=== PATIENT | male | born 1950 | race Caucasian/White ===

== ENCOUNTER → 2023-07-15 14:20 | Outpatient (REF) | payer MEDICARE, OTHER, SELFPAY | LOC: RAD 14:20 | PROVIDERS: ATTENDING PHYSICIAN Nurse Practitioner Adult Health | DX: R05.3 Chronic cough (principal) | CPT/HCPCS: 71046 ==

== ENCOUNTER → 2023-08-14 08:46 | Outpatient (REF) | payer MEDICARE, OTHER, SELFPAY ==
[2023-08-14 09:56] LABS: % Basophils 0.2 % (0-2); % Eosinophils 2.1 % (0-6); % Immature Granulocytes 0.5 % (0-0.5); % Lymphocytes 20.9 % (20.5-51.1); % Monocytes 6.5 % (1.7-9.3); % Neutrophils 69.8 % (42.2-75.2); Absolute Eosinophils 0.1 10^3/uL (0-0.7); Absolute Lymphocytes 0.9 10^3/uL (1.2-3.4); Absolute Monocytes 0.3 10^3/uL (0.1-0.6); Hematocrit 36.4 % (39.0-52.0); Hemoglobin 12.4 g/dL (13.0-18.0); Mean Corp Hgb Conc. 34.1 g/dL (33.0-37.0); Mean Corpuscular Hgb 33.2 pg (27.0-31.0); Mean Corpuscular Volume 97.3 fL (80.0-94.0); Mean Platelet Volume 10.1 fL (7.4-10.4); Nucleated Red Blood Cells % 0 % (-); Platelet Count 150 10^3/uL (130-400); Red Blood Cell Count 3.74 10^6/uL (4.70-6.10); Red Cell Dist. Width 13.2 % (11.5-14.5); White Blood Cell Count 4.3 10^3/uL (4.8-10.8)
[2023-08-14 10:30] LABS: ALT (SGPT) 27 U/L (0-50); AST (SGOT) 21 U/L (17-59); Albumin 4.7 g/dl (3.5-5.0); Alkaline Phosphatase 47 U/L (38-126); Blood Urea Nitrogen 24 mg/dl (9-20); Calcium 9.4 mg/dl (8.4-10.2); Carbon Dioxide 26 mmol/L (22-30); Chloride 101 mmol/L (98-107); Glucose 212 mg/dl (70-99); HDL Cholesterol 38 mg/dl; Iron 112 ug/dl (49-181); LDL Cholesterol, Calculated 32 mg/dl; Potassium 4.4 mmol/L (3.5-5.1); Sodium 139 mmol/L (135-145); Total Cholesterol 100 mg/dl (50-199); Total Protein 7.6 g/dl (6.3-8.2); Triglyceride 153 mg/dl (10-149); Very Low Density Lipoprotein 30 mg/dl (0-30); eGFR > 60.00
[2023-08-14 10:40] LABS: Percent Saturation 29 % (20-50); Total Iron Binding Capacity 378 ug/dl (261-462)
[2023-08-14 11:13] LABS: Ferritin 30.6 ng/ml (17.9-464.0)
[2023-08-14 11:39] LABS: Glycohemoglobin (HgbA1c) 8.3 % (4.0-5.6)
== END ==
LOC: REG 08:46
PROVIDERS: ATTENDING PHYSICIAN Family Medicine
DX: E11.69 Type 2 diabetes mellitus with other specified complication (principal); D64.9 Anemia, unspecified; E78.2 Mixed hyperlipidemia
CPT/HCPCS: 36415; 80053; 80061; 82728; 83036; 83540; 83550; 85025

== ENCOUNTER → 2023-09-23 06:29 | Day surgery (SDC) | payer MEDICARE, OTHER, SELFPAY ==
[2023-09-23 11:58] LABS: Glucose - Point of Care 231 mg/dl (70-99)
== END ==
LOC: GI 06:29
PROVIDERS: ATTENDING PHYSICIAN Internal Medicine Gastroenterology
DX: Z12.11 Encounter for screening for malignant neoplasm of colon (principal); K64.0 First degree hemorrhoids; K57.30 Diverticulosis of large intestine without perforation or abscess without bleeding; K63.89 Other specified diseases of intestine; D12.3 Benign neoplasm of transverse colon; D12.0 Benign neoplasm of cecum; D12.2 Benign neoplasm of ascending colon; Z86.010 Personal history of colon polyps
CPT/HCPCS: 45385; 45380; 88305; 82962

== ENCOUNTER → 2023-09-30 08:57 | Outpatient (REF) | payer MEDICARE, OTHER, SELFPAY ==
[2023-09-30 12:25] LABS: % Basophils 0.8 % (0-2); % Eosinophils 2.5 % (0-6); % Immature Granulocytes 0.5 % (0-0.5); % Neutrophils 58.2 % (42.2-75.2); Absolute Eosinophils 0.1 10^3/uL (0-0.7); Absolute Lymphocytes 1.2 10^3/uL (1.2-3.4); Absolute Monocytes 0.4 10^3/uL (0.1-0.6); Absolute Neutrophils 2.3 10^3/uL (1.4-6.5); Hematocrit 39.4 % (39.0-52.0); Hemoglobin 13.2 g/dL (13.0-18.0); Mean Corp Hgb Conc. 33.5 g/dL (33.0-37.0); Mean Corpuscular Hgb 33.8 pg (27.0-31.0); Mean Platelet Volume 10.3 fL (7.4-10.4); Nucleated Red Blood Cells % 0 % (-); Platelet Count 167 10^3/uL (130-400); Red Cell Dist. Width 13.9 % (11.5-14.5)
[2023-09-30 12:34] LABS: INR 1.09; PT 13.9 Sec (11.4-14.6)
[2023-09-30 13:57] LABS: ALT (SGPT) 26 U/L (0-50); AST (SGOT) 24 U/L (17-59); Albumin 5.2 g/dl (3.5-5.0); Alkaline Phosphatase 56 U/L (38-126); Blood Urea Nitrogen 25 mg/dl (9-20); Carbon Dioxide 27 mmol/L (22-30); Chloride 98 mmol/L (98-107); GGTP 60 U/L (15-73); Glucose 176 mg/dl (70-99); Potassium 4.4 mmol/L (3.5-5.1); Sodium 141 mmol/L (135-145); Total Bilirubin 1.1 mg/dl (0.2-1.3); Total Protein 8.3 g/dl (6.3-8.2); eGFR > 60.00
[2023-09-30 14:15] LABS: AFP Male/Tumor Marker 1.67 ng/ml
== END ==
LOC: RAD 08:57
PROVIDERS: ATTENDING PHYSICIAN Internal Medicine Transplant Hepatology; FAMILY PHYSICIAN Family Medicine
DX: K74.69 Other cirrhosis of liver (principal)
CPT/HCPCS: 36415; 76700; 80053; 82105; 82977; 85025; 85610

== ENCOUNTER → 2023-10-14 09:14 | Outpatient (REF) | payer MEDICARE, OTHER, SELFPAY | LOC: HWRAD 09:14 | PROVIDERS: ATTENDING PHYSICIAN Registered Nurse Ambulatory Care; REFERRING PHYSICIAN Physician Assistant Surgical | DX: R51.9 Headache, unspecified (principal); J01.10 Acute frontal sinusitis, unspecified; M54.6 Pain in thoracic spine | CPT/HCPCS: 70470; 70486; 72070; Q9967 ==

== ENCOUNTER → 2023-11-27 11:39 | Outpatient (REF) | payer MEDICARE, OTHER, SELFPAY | LOC: HWRAD 11:39 | PROVIDERS: ATTENDING PHYSICIAN Internal Medicine Critical Care Medicine; FAMILY PHYSICIAN Family Medicine | DX: R05.3 Chronic cough (principal) | CPT/HCPCS: 71250 ==

== ENCOUNTER → 2023-12-17 08:57 | Outpatient (REF) | payer MEDICARE, OTHER, SELFPAY ==
[2023-12-17 11:33] LABS: % Basophils 0.6 % (0-2); % Eosinophils 2.8 % (0-6); % Immature Granulocytes 0.2 % (0-0.5); % Lymphocytes 27.1 % (20.5-51.1); % Monocytes 7.2 % (1.7-9.3); % Neutrophils 62.1 % (42.2-75.2); Absolute Eosinophils 0.1 10^3/uL (0-0.7); Absolute Lymphocytes 1.4 10^3/uL (1.2-3.4); Absolute Monocytes 0.4 10^3/uL (0.1-0.6); Absolute Neutrophils 3.1 10^3/uL (1.4-6.5); Hematocrit 38.5 % (39.0-52.0); Hemoglobin 13.1 g/dL (13.0-18.0); Mean Corpuscular Hgb 34.1 pg (27.0-31.0); Mean Corpuscular Volume 100.3 fL (80.0-94.0); Mean Platelet Volume 10.3 fL (7.4-10.4); Nucleated Red Blood Cells % 0 % (-); Platelet Count 155 10^3/uL (130-400); Red Blood Cell Count 3.84 10^6/uL (4.70-6.10); Red Cell Dist. Width 13.2 % (11.5-14.5)
[2023-12-17 12:11] LABS: ALT (SGPT) 23 U/L (0-50); AST (SGOT) 25 U/L (17-59); Albumin 4.9 g/dl (3.5-5.0); Alkaline Phosphatase 63 U/L (38-126); Blood Urea Nitrogen 26 mg/dl (9-20); Calcium 9.4 mg/dl (8.4-10.2); Carbon Dioxide 26 mmol/L (22-30); Chloride 98 mmol/L (98-107); Glucose 199 mg/dl (70-99); HDL Cholesterol 34 mg/dl; Iron 107 ug/dl (49-181); Potassium 4.2 mmol/L (3.5-5.1); Sodium 138 mmol/L (135-145); Total Bilirubin 1.1 mg/dl (0.2-1.3); Total Cholesterol 112 mg/dl (50-199); Total Protein 7.5 g/dl (6.3-8.2); eGFR > 60.00
[2023-12-17 12:20] LABS: Percent Saturation 28 % (20-50); Total Iron Binding Capacity 375 ug/dl (261-462); Triglyceride 417 mg/dl (10-149)
[2023-12-17 12:39] LABS: Ferritin 29.8 ng/ml (17.9-464.0)
[2023-12-17 12:43] LABS: LDL Cholesterol, Direct 36 mg/dl
[2023-12-17 12:58] LABS: Glycohemoglobin (HgbA1c) 7.6 % (4.0-5.6)
== END ==
LOC: REG 08:57
PROVIDERS: ATTENDING PHYSICIAN Family Medicine
DX: E11.69 Type 2 diabetes mellitus with other specified complication (principal); E78.2 Mixed hyperlipidemia; D64.9 Anemia, unspecified
CPT/HCPCS: 36415; 80053; 80061; 82728; 83036; 83540; 83550; 83721; 85025

== ENCOUNTER → 2024-03-02 07:33 | Outpatient (REF) | payer MEDICARE, OTHER, SELFPAY | LOC: RAD 07:33 | PROVIDERS: ATTENDING PHYSICIAN Internal Medicine Gastroenterology; FAMILY PHYSICIAN Family Medicine | DX: R11.0 Nausea (principal) | CPT/HCPCS: 78264; A9541 ==

== ENCOUNTER → 2024-03-30 12:45 | Outpatient (REF) | payer MEDICARE, OTHER, SELFPAY | LOC: HWRAD 12:45 | PROVIDERS: ATTENDING PHYSICIAN Internal Medicine Transplant Hepatology; FAMILY PHYSICIAN Family Medicine; REFERRING PHYSICIAN Internal Medicine Critical Care Medicine | DX: K74.69 Other cirrhosis of liver (principal) | CPT/HCPCS: 74170; Q9967 ==

== ENCOUNTER → 2024-04-09 08:46 | Outpatient (REF) | payer MEDICARE, OTHER, SELFPAY ==
[2024-04-09 09:55] LABS: % Basophils 0.6 % (0-2); % Eosinophils 2.1 % (0-6); % Immature Granulocytes 0.3 % (0-0.5); % Lymphocytes 28.7 % (20.5-51.1); % Monocytes 10.1 % (1.7-9.3); % Neutrophils 58.2 % (42.2-75.2); Absolute Eosinophils 0.1 10^3/uL (0-0.7); Absolute Monocytes 0.3 10^3/uL (0.1-0.6); Hematocrit 36.5 % (39.0-52.0); Hemoglobin 12.3 g/dL (13.0-18.0); Mean Corp Hgb Conc. 33.7 g/dL (33.0-37.0); Mean Corpuscular Hgb 34.2 pg (27.0-31.0); Mean Corpuscular Volume 101.4 fL (80.0-94.0); Mean Platelet Volume 9.5 fL (7.4-10.4); Nucleated Red Blood Cells % 0 % (-); Platelet Count 158 10^3/uL (130-400); Red Cell Dist. Width 13.8 % (11.5-14.5); White Blood Cell Count 3.4 10^3/uL (4.8-10.8)
[2024-04-09 10:01] LABS: INR 1.04
[2024-04-09 10:13] LABS: ALT (SGPT) 26 U/L (0-50); AST (SGOT) 23 U/L (17-59); Albumin 4.8 g/dl (3.5-5.0); Alkaline Phosphatase 43 U/L (38-126); Blood Urea Nitrogen 20 mg/dl (9-20); Calcium 9.5 mg/dl (8.4-10.2); Carbon Dioxide 29 mmol/L (22-30); Chloride 99 mmol/L (98-107); GGTP 50 U/L (15-73); Glucose 242 mg/dl (70-99); HDL Cholesterol 45 mg/dl; LDL Cholesterol, Calculated 38 mg/dl; Potassium 4.9 mmol/L (3.5-5.1); Sodium 140 mmol/L (135-145); Total Cholesterol 126 mg/dl (50-199); Total Protein 7.3 g/dl (6.3-8.2); Triglyceride 215 mg/dl (10-149); Very Low Density Lipoprotein 43 mg/dl (0-30); eGFR > 60.00
[2024-04-09 11:03] LABS: Glycohemoglobin (HgbA1c) 7.7 % (4.0-5.6)
[2024-04-09 12:17] LABS: Microalbumin, Random Urine 4.1 mg/dl (0.6-1.7); Microalbumin/creatinine Ratio 51.1 mg/g
[2024-04-09 15:21] LABS: AFP Male/Tumor Marker 1.99 ng/ml
[2024-04-09 18:23] LABS: PSA, Total - Screen 0.42 ng/ml (0.0-4.0); TSH Reflex To Free T4 1.77 uIU/ml (0.47-4.68)
[2024-04-09 18:27] LABS: Ferritin 22.4 ng/ml (17.9-464.0)
== END ==
LOC: REG 08:46
PROVIDERS: ATTENDING PHYSICIAN Family Medicine; FAMILY PHYSICIAN Internal Medicine Transplant Hepatology
DX: E11.69 Type 2 diabetes mellitus with other specified complication (principal); E78.2 Mixed hyperlipidemia; D64.9 Anemia, unspecified; R80.9 Proteinuria, unspecified; N40.1 Benign prostatic hyperplasia with lower urinary tract symptoms; Z12.5 Encounter for screening for malignant neoplasm of prostate; Z13.29 Encounter for screening for other suspected endocrine disorder; K74.69 Other cirrhosis of liver
CPT/HCPCS: 36415; 80053; 80061; 82043; 82105; 82570; 82728; 82977; 83036; 84443; 85025; 85610; G0103

== ENCOUNTER 2024-08-16 06:25 | Day surgery (SDC) | payer MEDICARE, OTHER, SELFPAY ==
[2024-08-16 08:14] LABS: Glucose - Point of Care 253 mg/dl (70-99)
== END 2024-08-16 09:55 | disposition home or self-care (01) ==
LOC: GI 06:25
PROVIDERS: ATTENDING PHYSICIAN Internal Medicine Gastroenterology
DX: K74.60 Unspecified cirrhosis of liver (principal); K31.7 Polyp of stomach and duodenum; K22.89 Other specified disease of esophagus; K31.89 Other diseases of stomach and duodenum
CPT/HCPCS: 43239; 88305; 82962; 87220

== ENCOUNTER 2024-09-29 06:17 | Day surgery (SDC) | payer MEDICARE, OTHER, SELFPAY ==
[2024-09-29 07:16] LABS: Glucose - Point of Care 225 mg/dl (70-99)
== END 2024-09-29 09:04 | disposition home or self-care (01) ==
LOC: GI 06:17
PROVIDERS: ATTENDING PHYSICIAN Internal Medicine Gastroenterology
DX: Z12.11 Encounter for screening for malignant neoplasm of colon (principal); D12.0 Benign neoplasm of cecum; D12.2 Benign neoplasm of ascending colon; D12.3 Benign neoplasm of transverse colon; K63.89 Other specified diseases of intestine; K57.30 Diverticulosis of large intestine without perforation or abscess without bleeding; Z86.0101 Personal history of adenomatous and serrated colon polyps; K64.0 First degree hemorrhoids
CPT/HCPCS: 45385; 45380; 88305; 82962

== ENCOUNTER → 2024-09-30 08:55 | Outpatient (REF) | payer MEDICARE, OTHER, SELFPAY ==
[2024-09-30 12:53] LABS: INR 1.05; PT 14.2 Sec (11.4-14.6)
[2024-09-30 13:16] LABS: % Basophils 0.3 % (0-2); % Eosinophils 1.5 % (0-6); % Immature Granulocytes 0.5 % (0-0.5); % Lymphocytes 19.7 % (20.5-51.1); % Monocytes 10.8 % (1.7-9.3); % Neutrophils 67.2 % (42.2-75.2); Absolute Eosinophils 0.1 10^3/uL (0-0.7); Absolute Lymphocytes 1.2 10^3/uL (1.2-3.4); Absolute Monocytes 0.7 10^3/uL (0.1-0.6); Absolute Neutrophils 4.1 10^3/uL (1.4-6.5); Hematocrit 37.9 % (39.0-52.0); Hemoglobin 13.2 g/dL (13.0-18.0); Mean Corp Hgb Conc. 34.8 g/dL (33.0-37.0); Mean Corpuscular Hgb 33.2 pg (27.0-31.0); Mean Corpuscular Volume 95.2 fL (80.0-94.0); Mean Platelet Volume 10.9 fL (7.4-10.4); Nucleated Red Blood Cells % 0 % (-); Platelet Count 142 10^3/uL (130-400); Red Blood Cell Count 3.98 10^6/uL (4.70-6.10); Red Cell Dist. Width 14.1 % (11.5-14.5); White Blood Cell Count 6.1 10^3/uL (4.8-10.8)
[2024-09-30 13:21] LABS: Glycohemoglobin (HgbA1c) 8.1 % (4.0-5.6)
[2024-09-30 14:37] LABS: ALT (SGPT) 38 U/L (0-50); AST (SGOT) 33 U/L (17-59); Alkaline Phosphatase 64 U/L (38-126); Blood Urea Nitrogen 24 mg/dl (9-20); Carbon Dioxide 27 mmol/L (22-30); Chloride 104 mmol/L (98-107); Glucose 243 mg/dl (70-99); HDL Cholesterol 38 mg/dl; LDL Cholesterol, Calculated 28 mg/dl; Potassium 4.8 mmol/L (3.5-5.1); Sodium 140 mmol/L (135-145); Total Bilirubin 1.7 mg/dl (0.2-1.3); Total Cholesterol 93 mg/dl (50-199); Total Protein 7.8 g/dl (6.3-8.2); Triglyceride 138 mg/dl (10-149); Very Low Density Lipoprotein 27 mg/dl (0-30); eGFR > 60.00
[2024-09-30 14:54] LABS: GGTP 51 U/L (15-73)
[2024-09-30 16:53] LABS: Ferritin 57.3 ng/ml (17.9-464.0)
[2024-09-30 18:42] LABS: AFP Male/Tumor Marker 1.97 ng/ml
== END ==
LOC: HWRAD 08:55
PROVIDERS: ATTENDING PHYSICIAN Internal Medicine Transplant Hepatology; FAMILY PHYSICIAN Family Medicine
DX: K74.69 Other cirrhosis of liver (principal); E11.69 Type 2 diabetes mellitus with other specified complication; E78.2 Mixed hyperlipidemia; D64.9 Anemia, unspecified; E11.9 Type 2 diabetes mellitus without complications
CPT/HCPCS: 36415; 76700; 80053; 80061; 82105; 82728; 82977; 83036; 85025; 85610

== ENCOUNTER → 2024-11-15 11:22 | Outpatient (REF) | payer MEDICARE, OTHER, SELFPAY ==
[2024-11-15 13:07] LABS: Blood Urea Nitrogen 28 mg/dl (9-20)
== END ==
LOC: REG 11:22
PROVIDERS: ATTENDING PHYSICIAN Nurse Practitioner; FAMILY PHYSICIAN Family Medicine
DX: N18.9 Chronic kidney disease, unspecified (principal)
CPT/HCPCS: 36415; 82565; 84520

== ENCOUNTER → 2024-11-18 14:08 | Outpatient (REF) | payer MEDICARE, OTHER, SELFPAY | LOC: MRI 14:08 | PROVIDERS: ATTENDING PHYSICIAN Nurse Practitioner; FAMILY PHYSICIAN Family Medicine | DX: M54.16 Radiculopathy, lumbar region (principal) | CPT/HCPCS: 72158; 76014; 76015; A9575 ==

== ENCOUNTER → 2025-02-01 14:40 | Outpatient (REF) | payer MEDICARE, OTHER, SELFPAY | LOC: RCS 14:40 | PROVIDERS: ATTENDING PHYSICIAN Internal Medicine Cardiovascular Disease; FAMILY PHYSICIAN Family Medicine | DX: I35.8 Other nonrheumatic aortic valve disorders (principal) | CPT/HCPCS: 93306 ==

== ENCOUNTER → 2025-02-18 10:41 | Outpatient (REF) | payer MEDICARE, OTHER, SELFPAY ==
[2025-02-18 11:35] LABS: Hematocrit 37.5 % (39.0-52.0); Hemoglobin 12.8 g/dL (13.0-18.0); Mean Corp Hgb Conc. 34.1 g/dL (33.0-37.0); Mean Corpuscular Volume 98.2 fL (80.0-94.0); Nucleated Red Blood Cells % 0 % (-); Platelet Count 152 10^3/uL (130-400); Red Cell Dist. Width 12.8 % (11.5-14.5)
[2025-02-18 13:30] LABS: ALT (SGPT) 27 U/L (0-50); AST (SGOT) 24 U/L (17-59); Albumin 4.9 g/dl (3.5-5.0); Alkaline Phosphatase 52 U/L (38-126); Blood Urea Nitrogen 25 mg/dl (9-20); Calcium 9.0 mg/dl (8.4-10.2); Carbon Dioxide 25 mmol/L (22-30); Chloride 100 mmol/L (98-107); Glucose 245 mg/dl (70-99); Potassium 4.5 mmol/L (3.5-5.1); Sodium 138 mmol/L (135-145); Total Protein 7.7 g/dl (6.3-8.2); eGFR > 60.00
[2025-02-18 14:10] LABS: Glycohemoglobin (HgbA1c) 7.9 % (4.0-5.6)
== END ==
LOC: SDSPAT 10:41
PROVIDERS: ATTENDING PHYSICIAN Internal Medicine Cardiovascular Disease; FAMILY PHYSICIAN Family Medicine; OTHER PHYSICIAN Internal Medicine Cardiovascular Disease
DX: I51.7 Cardiomegaly (principal); E11.9 Type 2 diabetes mellitus without complications
CPT/HCPCS: 36415; 80053; 83036; 85025; 93005

== ENCOUNTER 2025-02-21 06:19 | Day surgery (SDC) | payer MEDICARE, OTHER, SELFPAY ==
[2025-02-18 11:14] VITALS: BMI 32.0
[2025-02-21 06:25] VITALS: BMI 32.3
[2025-02-21 06:38] VITALS: BP 139/76
[2025-02-21 06:54] LABS: Glucose - Point of Care 209 mg/dl (70-99)
--- NOTE | 2025-02-21 08:24 | ITS.CL.CATH ---
[employer] - Catheterization
Cardiac Catheterization
Procedure Report:
RIGHT HEART CATHETERIZATION
Date of Procedure: 02/21/2025
Referring: Ale José M.D.
INDICATION: Right ventricular dilation and hypokinesis.
ACCESS:
6 [place]uv[place] right antecubital vein using a modified Seldinger technique under ultrasound guidance.
CATHETERS:
5 [place] balloon wedge.
PROCEDURE:
The patient was prepped and draped in standard sterile fashion. The area for antecubital access was anesthetized with 1% lidocaine. Under ultrasound guidance, we identified the antecubital vein. This was subsequently punctured under ultrasound
guidance and a wire was fed into the vein without resistance. A 6 [place]uv[place] sheath was inserted into the antecubital vein. A 5 [place] balloon wedge catheter was advanced through the sheath into the superior vena cava. An SVC oxygen saturation was
drawn. The balloon wedge catheter was advanced into the pulmonary artery and a pulmonary artery oxygen saturation was drawn. Arterial oxygen saturation was assumed from pulse oximetry. Oxygen saturations were drawn in the SVC, IVC, right atrium,
right ventricle and right pulmonary artery. Cardiac output was calculated using the Ashish equation. The PA, wedge, RV and RA pressures were measured on pullback. The balloon wedge catheter was removed. The 6 [place]uv[place] sheath was removed and manual
pressure was held for hemostasis.
Weight (kg): 98.9
PA (s/d/x mmHg): 47/25/32
PCWP (a/v/x mmHg): /
RV (s/x mmHg): 48/15
RA (a/v/x mmHg): 18/
AO (s/d/x mmHg): 140/70/99 (non-invasive)
SVC SvO2 (%): 63.1
IVC SvO2 (%): 64.3
MV SvO2 (%): 63.4
RA SvO2 (%): 62.5
RV SvO2 (%): 64.0
PA SvO2 (%): 65.1
SaO2 (%): 93.0 (assumed)
Hbg (g/dL): 11.7
Ashish
CO (liters/minute): 5.42
CI (liters/minute/m2): 2.53
Thermodilution
CO (liters/minute): Not performed.
CI (liters/minute/m2): Not performed.
TPG (mmHg): 12
PVR (Butcher Units): 2.21
AVO2 Difference (Volume %): 4.43
Cardiac Power Output (lucas): 1.19 (MAP * CO)/451 (normal 0.5 - 0.7; 0.4 - 0.6 in the elderly)
Cardiac Power Index (lucas/m2): 0.56 (MAP * CI)/451
Lisa: 1.47 (PAs-PAd)/RA
Radiation (mGy): 166
DAP (cm2.Gy): 17.2
Fluoroscopy time (minutes): 9.9
CONCLUSION:
1. Moderately elevated filling pressures (PCWP = 20 mmHg at 98.9 kg).
2. 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
3. Normal cardiac function indices (cardiac index = 2.53 L/min/m�, cardiac power output = 1.19 W, Lisa = 1.47).
4. No evidence of intracardiac [id number] shunt.
RECOMMENDATIONS:
1. Expectant management after right heart catheterization via right antecubital approach.
2. Continue outpatient evaluation for right ventricular dilation and hypokinesis. Consider cardiac MRI if patient's pacemaker is compatible.
Copy to: Ale José M.D., Ruth JoradnO.
Keyon Horn D.O., FACC, FACP
[2025-02-21 08:37] VITALS: BP 161/66
[2025-02-21 08:51] VITALS: BP 149/72
[2025-02-21 09:07] VITALS: BP 139/66
== END 2025-02-21 09:32 | disposition home or self-care (01) ==
LOC: CATH 06:19
PROVIDERS: ATTENDING PHYSICIAN Internal Medicine Cardiovascular Disease; FAMILY PHYSICIAN Family Medicine; OTHER PHYSICIAN Internal Medicine Cardiovascular Disease
DX: I27.20 Pulmonary hypertension, unspecified (principal); I44.1 Atrioventricular block, second degree; I11.9 Hypertensive heart disease without heart failure; E78.5 Hyperlipidemia, unspecified; I47.20 Ventricular tachycardia, unspecified; M19.90 Unspecified osteoarthritis, unspecified site; Z79.4 Long term (current) use of insulin; E11.43 Type 2 diabetes mellitus with diabetic autonomic (poly)neuropathy; K31.84 Gastroparesis; G89.29 Other chronic pain; G47.33 Obstructive sleep apnea (adult) (pediatric); M48.00 Spinal stenosis, site unspecified; J84.9 Interstitial pulmonary disease, unspecified; R91.8 Other nonspecific abnormal finding of lung field; N40.0 Benign prostatic hyperplasia without lower urinary tract symptoms; K75.81 Nonalcoholic steatohepatitis (NASH); Z79.82 Long term (current) use of aspirin; Z79.84 Long term (current) use of oral hypoglycemic drugs; Z79.891 Long term (current) use of opiate analgesic; Z79.899 Other long term (current) drug therapy; Z95.0 Presence of cardiac pacemaker; Z96.643 Presence of artificial hip joint, bilateral; Z98.1 Arthrodesis status; K21.9 Gastro-esophageal reflux disease without esophagitis
CPT/HCPCS: 82962; 93451; C1769; C1894

== ENCOUNTER → 2025-02-28 09:30 | Outpatient (REF) | payer MEDICARE, SELFPAY ==
[2025-02-28 11:50] LABS: ALT (SGPT) 31 U/L (0-50); AST (SGOT) 30 U/L (17-59); Albumin 5.2 g/dl (3.5-5.0); Alkaline Phosphatase 57 U/L (38-126); Blood Urea Nitrogen 52 mg/dl (9-20); Calcium 8.9 mg/dl (8.4-10.2); Carbon Dioxide 31 mmol/L (22-30); Chloride 93 mmol/L (98-107); Glucose 258 mg/dl (70-99); HDL Cholesterol 36 mg/dl; LDL Cholesterol, Calculated 32 mg/dl; Potassium 4.6 mmol/L (3.5-5.1); Sodium 139 mmol/L (135-145); Total Protein 8.4 g/dl (6.3-8.2); Very Low Density Lipoprotein 53 mg/dl (0-30); eGFR 48.55
[2025-02-28 12:08] LABS: Microalb - Urine Creatinine 94.700 mg/dl
[2025-02-28 12:12] LABS: Microalbumin, Random Urine 0.6 mg/dl (0.6-1.7)
== END ==
LOC: REG 09:30
PROVIDERS: ATTENDING PHYSICIAN Internal Medicine Cardiovascular Disease; FAMILY PHYSICIAN Family Medicine; OTHER PHYSICIAN Nurse Practitioner Family
DX: E11.65 Type 2 diabetes mellitus with hyperglycemia (principal); I51.7 Cardiomegaly
CPT/HCPCS: 36415; 80053; 80061; 82043; 82570

== ENCOUNTER → 2025-03-11 12:09 | Outpatient (REF) | payer MEDICARE, OTHER, SELFPAY | LOC: RAD 12:09 | PROVIDERS: ATTENDING PHYSICIAN Internal Medicine Critical Care Medicine; FAMILY PHYSICIAN Family Medicine; OTHER PHYSICIAN Internal Medicine Gastroenterology | DX: J45.909 Unspecified asthma, uncomplicated (principal); J84.9 Interstitial pulmonary disease, unspecified; K75.81 Nonalcoholic steatohepatitis (NASH) | CPT/HCPCS: 71250; 74170; Q9967 ==

== ENCOUNTER → 2025-04-22 09:09 | Outpatient (REF) | payer MEDICARE, OTHER, SELFPAY ==
[2025-04-22 10:10] LABS: Hematocrit 35.3 % (39.0-52.0); Hemoglobin 12.1 g/dL (13.0-18.0); Mean Corp Hgb Conc. 34.3 g/dL (33.0-37.0); Mean Corpuscular Volume 99.4 fL (80.0-94.0); Nucleated Red Blood Cells % 0 % (-); Platelet Count 143 10^3/uL (130-400); Red Cell Dist. Width 13.7 % (11.5-14.5)
[2025-04-22 10:17] LABS: INR 1.05; PT 13.8 Sec (11.4-14.6)
[2025-04-22 10:18] LABS: APTT 29.9 Sec (23.4-35.0)
[2025-04-22 10:45] LABS: ALT (SGPT) 26 U/L (0-50); AST (SGOT) 30 U/L (17-59); Albumin 4.9 g/dl (3.5-5.0); Alkaline Phosphatase 56 U/L (38-126); Blood Urea Nitrogen 35 mg/dl (9-20); Calcium 8.9 mg/dl (8.4-10.2); Carbon Dioxide 29 mmol/L (22-30); Chloride 93 mmol/L (98-107); Glucose 227 mg/dl (70-99); HDL Cholesterol 34 mg/dl; LDL Cholesterol, Calculated 30 mg/dl; Potassium 4.0 mmol/L (3.5-5.1); Sodium 136 mmol/L (135-145); Total Protein 7.8 g/dl (6.3-8.2); Very Low Density Lipoprotein 54 mg/dl (0-30); eGFR 57.65
[2025-04-22 10:46] LABS: Microalb - Urine Creatinine 110.900 mg/dl
[2025-04-22 10:52] LABS: Microalbumin, Random Urine 1.1 mg/dl (0.6-1.7)
[2025-04-22 11:14] LABS: PSA, Total - Screen 0.38 ng/ml (0.0-4.0)
[2025-04-22 11:18] LABS: Ferritin 37.5 ng/ml (17.9-464.0)
[2025-04-22 11:34] LABS: AFP Male/Tumor Marker 2.24 ng/ml
[2025-04-22 12:09] LABS: Glycohemoglobin (HgbA1c) 8.2 % (4.0-5.9)
== END ==
LOC: REG 09:09
PROVIDERS: ATTENDING PHYSICIAN Internal Medicine Gastroenterology; FAMILY PHYSICIAN Family Medicine
DX: E11.69 Type 2 diabetes mellitus with other specified complication (principal); E78.2 Mixed hyperlipidemia; D64.9 Anemia, unspecified; Z12.5 Encounter for screening for malignant neoplasm of prostate; Z13.29 Encounter for screening for other suspected endocrine disorder; K75.81 Nonalcoholic steatohepatitis (NASH)
CPT/HCPCS: 36415; 80053; 80061; 82043; 82105; 82248; 82570; 82728; 83036; 84443; 85025; 85610; 85730; G0103